=== PATIENT | male | born 1955 | race Two or more races ===

== ENCOUNTER → 2017-10-06 | Emergency (ER) | payer OTHER ==
[~2017-10-06] VITALS: Ht 182.9 cm; Wt 110.2 kg
[~2017-10-06] MED LIST: AZOR 10-40 MG1 EACH PO; DIOVAN320 MG; LEVSIN/SL0.125 MG PO; Levsin/Sl 0.125 MG TAB.SUBL SL; NORVASC 10 MG TAB PO; PROTONIX40 MG PO; VASOTEC 20MG TAB PO; [UNRECOGNIZED DRUG - OTHER]
== END | disposition home or self-care (01) ==
LOC: ER 11:09
DX: R10.11 Right upper quadrant pain (principal); K29.60 Other gastritis without bleeding

== ENCOUNTER 2020-03-06 16:13 | Emergency (ER) | payer OTHER ==
[~2020-03-06] VITALS: Ht 182.9 cm; Wt 113.4 kg
== END 2020-03-06 23:09 | disposition home or self-care (01) ==
LOC: ER 16:13
DX: U07.1 COVID-19 (principal); J12.89 Other viral pneumonia; I71.2 Thoracic aortic aneurysm, without rupture; I51.7 Cardiomegaly

== ENCOUNTER 2020-06-26 20:11 | Emergency (ER) | payer OTHER ==
[~2020-06-26] VITALS: Ht 182.9 cm; Wt 112.5 kg
== END 2020-06-27 01:50 | disposition home or self-care (01) ==
LOC: ER 20:11 → CPU-OBS 20:14 → ER 06-27 01:50
DX: R07.89 Other chest pain (principal); F41.1 Generalized anxiety disorder
CPT/HCPCS: G0378; G0379; 93005